=== PATIENT | male | born 1970 | race Caucasian/White ===

== ENCOUNTER 2016-08-07 14:25 | Emergency (ER) | payer OTHER ==
[~2016-08-07] VITALS: Ht 185.4 cm; Wt 108.9 kg
== END 2016-08-07 16:39 | disposition admitted as inpatient to this hospital (09) ==
LOC: ERH 14:25
DX: S61.412A Laceration without foreign body of left hand, initial encounter (principal); W27.8XXA Contact with other nonpowered hand tool, initial encounter